=== PATIENT | female | born 1970 | race Caucasian/White ===

== ENCOUNTER 2016-11-21 23:31 | Inpatient (IN) | payer MEDICARE, BC ==
--- NOTE | ~2016-11-21 | DS ---
Discharge Summary [facility] [address] [place]. [address] NAME: JACINTA TIMMONS : 66 STATUS : DIS IN PAT#: [id number] AGE: 46 ADM/REG DATE : 11/22/16 MR#: [id number] REPORT SERV DATE: 11/26/16 DICTATED BY: TROY ADAME JR DATE: 11/25/16 REPORT STATUS : Draft TRANSCRIBED BY: MODL DATE: 11/25/16 ADMISSION DATE: 11/22/2016 DISCHARGE DATE: 11/25/2016 TOMATO PULPER OPERATOR: Key Rodriguez M.D. DISMISSAL DIAGNOSES: 1. Fever, cryptogenic, suspect viral. 2. Iron-deficiency anemia. 3. Renal transplant. 4. Chronic immunosuppression. Follow up with Dr. Héctor Cao in two to three weeks. To get lab work in his office at end of this next week. She is to phone [facility] for office followup within the next one to two months. DISPOSITION: Dismissed to home. ACTIVITY: Regular. DIET: Regular. DISMISSAL MEDICATIONS: 1. Mycophenolate 750 mg twice daily, new dose. 2. Saccharomyces or other oral probiotic eyel-tor-muggnyc by package directions. 3. Tacrolimus 4 mg twice a day. 4. Tylenol as needed. 5. Cholecalciferol 5000 units two times a week. 6. Lomotil 2.5 mg three times a day as needed for diarrhea. 7. Ranitidine 150 mg twice daily. 8. Multivitamin one daily. 9. Biotin as pre-hospital. 10.Soyp-ret-zmrzuqq iron sulfate two tablets per day with meals. HOSPITAL COURSE: The patient had a recurrent fever after experiencing episodes of fevers off and on over the last two or three months. Highest recorded temperature in the hospital was 102.9 on the first night of admission, 11/21/2016. She was treated empirically with antibiotics and seen by Infectious Disease. All bacterial culture data is negative at the time of dismissal. She defervesced over the first 36 hours and has been afebrile for the last 48 hours. Viral serologies were drawn and are pending still at this dictation. She has an ongoing pattern of episodic diarrhea, so Gastroenterology Services were consulted for endoscopy of the upper and lower tracts. Upper and lower GI tracts by endoscopy looked quite healthy and normal in appearance. Pathological samples were taken, but are pending results at the time of dictation. She came with an intra-hemoglobin of about 9.5 that dropped to 7.5 with hydration, and yesterday, she was transfused 2 units of packed red blood cells. There would be some consideration about bone marrow suppression as a consequence of Discharge Summary [place] [id number] [place]. [address] NAME: JACINTA TIMMONS : 66 STATUS : DIS IN PAT#: [id number] AGE: 46 ADM/REG DATE : 11/22/16 MR#: [id number] REPORT SERV DATE: 11/26/16 DICTATED BY: TROY ADAME JR DATE: 11/25/16 REPORT STATUS : Draft TRANSCRIBED BY: BASIA DATE: 11/25/16 her immunotherapy. Her renal function, however, is good enough that she should not have impaired erythropoiesis production. She was determined to be iron deficient and will be started on a supplement. Imaging with CT scan of the abdomen, did not identify pathology. Renal ultrasound was accomplished and showed a healthy appearing right iliac fossa renal transplant. Creatinine at dismissal is 1.2, it had been 1.6 when she came in and was clinically suspected to be dry. Radiography of the chest did not reveal any infiltrates. Urinalysis did not suggest urinary tract infection. Diarrhea has subsided in the hospital, after controlling the prep and reintroduction of oral diet. This examiner had concern about immunotherapy contributing to the diarrhea. In consultation with her [facility] general ledger bookkeeper, mycophenolate dosing was reduced by 25%. Discussion in full with the patient and her about diagnostic procedures and findings has been held throughout the hospital stay. They have acknowledged understanding. At this moment, it would appear that she had a viral illness with resolution and she will be dismissed today without oral antimicrobial therapy. There are no unanswered questions. I appreciate the assistance of Dr. Rodriguez and Dr. Parisi in the management of this interesting patient. DF/BASIA Troy Adame Jr, M.D. / [id number] CC: Troy Adame Jr, M.D. Rosa Gonsales M.D. Kandi Tafoya M.D. [facility] ([facility]
--- NOTE | ~2016-11-21 | EGD ---
EGD REPORT [facility] [address] [address] NAME: TANISHA BURNS : 66 STATUS : ADM IN PAT#: [id number] AGE: 46 ADM/REG DATE : 11/22/16 MR#: [id number] REPORT SERV DATE: 11/24/16 DICTATED BY: BRENTON MOYA DATE: 11/24/16 REPORT STATUS : Draft TRANSCRIBED BY: [facility] DATE: 11/24/16 Endoscopy Center Patient Name: Tanisha Burns Date of : 1970 Attending MD: ALMA MOYA MD Procedure Date No Time: 11/24/2016 Procedure: Colonoscopy Indications: Clinically significant diarrhea of unexplained origin, in a patient with renal transplant and on immunosuppresants Referring MD: TROY ADAME JR, LAURA GARCIA MD Medicines: See the Anesthesia note for documentation of the administered medications Complications: No immediate complications. Estimated blood loss: None. Procedure: Pre-Anesthesia Assessment: - ASA Grade Assessment: III - A patient with severe systemic disease. - Prior to the procedure, a History and Physical was performed, and patient medications and allergies were reviewed. The patient's tolerance of previous anesthesia was also reviewed. The risks and benefits of the procedure and the sedation options and risks were discussed with the patient. All questions were answered, and informed consent was obtained. Prior Anticoagulants: The patient has taken no previous anticoagulant or antiplatelet agents. After reviewing the risks and benefits, the patient was deemed in satisfactory condition to undergo the procedure. After I obtained informed consent, the scope was passed under direct vision. Throughout the procedure, the patient's blood pressure, pulse, and oxygen saturations were monitored continuously. The PCF [id number] was introduced through the anus and advanced to the terminal ileum. The ileocecal valve, appendiceal orifice, terminal ileum and rectum were photographed. The entire colon was examined. The colonoscopy was performed without difficulty. The patient tolerated the procedure well. The quality of the bowel preparation was adequate. Findings: The perianal and digital rectal examinations were normal. The terminal ileum appeared normal. Biopsies were taken with a cold forceps for histology. Normal mucosa was found in the entire colon. Biopsies were taken with a cold forceps for histology. EGD REPORT [address] [place]. [address] NAME: TANISHA BURNS : 66 STATUS : ADM IN PAT#: [id number] AGE: 46 ADM/REG DATE : 11/22/16 MR#: [id number] REPORT SERV DATE: 11/24/16 DICTATED BY: BRENTON MOYA DATE: 11/24/16 REPORT STATUS : Draft TRANSCRIBED BY: [employer] DATE: 11/24/16 Impression: - The examined portion of the ileum was normal. Biopsied. - Normal mucosa in the entire examined colon. Biopsied. Recommendation: - Patient has a contact number available for emergencies. The signs and symptoms of potential delayed complications were discussed with the patient. Return to normal activities tomorrow. Written discharge instructions were provided to the patient. - Regular diet. - Return patient to [facility] for ongoing care. - Continue present medications. - Regular diet. - Await pathology results. Procedure Code(s): --- Professional --- 99204, Colonoscopy, flexible, proximal to splenic flexure; with biopsy, single or multiple Diagnosis Code(s): --- Professional --- R19.7, Diarrhea, unspecified CPT copyright 2013 [employer]. All rights reserved. The codes documented in this report are preliminary and upon comparative sociology professor review may be revised to meet current compliance requirements. ALMA MOYA MD 11/24/2016 7:53 AM This report has been signed electronically. Number of Addenda: 0 Note Initiated On: 11/24/2016 6:51 AM Scope Withdrawal Time 0 hours 10 minutes 45 seconds [id number] [id number]
--- NOTE | ~2016-11-21 | CN ---
Consultation Report [facility] [address] [place]. [address] NAME: JACINTA TIMMONS : 66 STATUS : ADM IN PAT#: [id number] AGE: 46 ADM/REG DATE : 11/22/16 MR#: [id number] REPORT SERV DATE: 11/22/16 DICTATED BY: ALEX PARISI DATE: 11/22/16 REPORT STATUS : Draft TRANSCRIBED BY: MODL DATE: 11/22/16 INFECTIOUS DISEASE CONSULTATION DATE OF CONSULTATION: 11/22/2016 REASON FOR CONSULTATION: Febrile illness in immunocompromised patient. HISTORY OF PRESENT ILLNESS: This is a 46-year-old female with a history of renal transplant in June of 2014 for end-stage renal disease secondary to hypertension. She had previously been on dialysis. She overall has done well with her post transplant course without any major complications. She remains on stable doses of immunosuppressive therapy with Prograf and CellCept. The patient states that perhaps five weeks ago she had the onset of flu-like symptoms with fevers, myalgias, and with this initial episode also nausea, vomiting, diarrhea. Fevers got as high as 102. She was given empiric Tamiflu, although did not have an influenza test. Did have basic blood work done. She got better over the course of a week and was able to return to work only to have a relapse in her symptoms about a week and a half later again with fevers and myalgias, but no GI symptoms this time. Her temperature got as high as 101 and was episodic for three days. She had a negative influenza screen during that period. She relates that she got quite dehydrated and had to receive intravenous fluids in the Nephrology office. She again felt better only to relapse with similar symptoms about a week later with two days of fevers as high as 101.5. With this episode, she said she had blood cultures done and a urine culture. She then was reasonably well until the evening of 11/20/2016 when she had a fever up to 102 with some nausea and vomiting x3 episodes. Her fever got as high as 103 yesterday and she therefore presented to the emergency department yesterday evening where she had a temperature 102.9 and was mildly tachycardic and was found to have a white blood cell count of 13.7. Other symptoms have included watery diarrhea with about 8 to 10 stools over the last 24 hours. She notes that she has chronic episodic loose stools since her transplant, but over the past five weeks with these episodes, she has had an increase in this episodic diarrhea with greater frequency, but no significant associated abdominal pain. She does have some nausea and vomiting episodically also. She received a course of azithromycin with her second episode, but otherwise, has not had antibiotics except for the Tamiflu. Other symptoms include mild episodic headache, but it is not severe. PAST MEDICAL HISTORY: In addition to the above, is notable for hyperlipidemia, hyperparathyroidism, history of a TIA, cholecystectomy, and PD catheter placements along with a ventral hernia repair by Dr. Tabares with most recent repair in June of 2016 using Prolene mesh patch. ALLERGIES: SHE IS INTOLERANT OF LIPITOR. OUTPATIENT MEDICATIONS: Include biotin, cholecalciferol, multivitamins, CellCept 1 g b.i.d., Zantac, phosphate binders, and Prograf 4 mg b.i.d. In the emergency room, she was started on Cipro and then changed to Zosyn plus vancomycin. Consultation Report [place] [address] [place]. [address] NAME: JACINTA TIMMONS : [birth year] STATUS : ADM IN [facility]#: [id number] AGE: 46 ADM/REG DATE : 11/22/16 MR#: [id number] REPORT SERV DATE: 11/22/16 DICTATED BY: ALEX PARISI DATE: 11/22/16 REPORT STATUS : Draft TRANSCRIBED BY: BASIA DATE: 11/22/16 SOCIAL HISTORY: The patient has lived in the [facility] all her life. 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 Nonsmoker and nondrinker. Lives with her . She has two adult children. No pets or animal contact. She does do yard work, but does not note any tick bites this spring. No pertinent recent travel history. No known exposure to tuberculosis. No unusual dietary habits. FAMILY HISTORY: Negative for autoimmune illnesses, inflammatory bowel disease, or cancer. REVIEW OF SYSTEMS: As outlined above. Her weight has kind of fluctuated up and down over the past six weeks. No major changes. No visual symptoms. No sore throat, cough, sinus congestion, chest pain, shortness of breath, genitourinary symptoms, skin problems or rashes or joint complaints. PHYSICAL EXAMINATION: VITAL SIGNS: The patient weighs 83 kg; maximum temperature was yesterday at 102.9, presently afebrile; blood pressure 102/60; respiratory rate 12; and pulse 99, it was as high as 115. GENERAL: She is alert, pleasant, in no acute distress. HEAD AND NECK: Extraocular movements are intact, possibly one small petechia on each conjunctiva. Oral cavity is clear. Pharynx unremarkable. No ulcers. Neck is supple. No adenopathy. LUNGS: Clear to auscultation. BACK: Unremarkable. CARDIAC: Regular rate and rhythm. Normal S1 and S2 without murmur, gallop, or rub. ABDOMEN: Bowel sounds are present. The abdomen is soft and nontender. No tenderness over the transplant kidney. She does have some very mild discomfort to palpation over the recent ventral hernia repair, but no signs of inflammation there. EXTREMITIES: Without significant edema. SKIN: Without rash. LABORATORY STUDIES: White blood cell count today 14.5, hemoglobin 8.4, MCV 89, RDW 13.7, and platelets 189. Albumin 2.6. Liver function tests normal. Procalcitonin 1.08. Urinalysis entirely negative. Blood cultures negative to date. Chest x-ray negative. Renal ultrasound of the transplant kidney negative. IMPRESSION: This is a somewhat puzzling case of a renal transplant patient with fourth episode of fevers and myalgias over the past five weeks, who also has chronic episodic diarrhea and has had some associated nausea and vomiting also. She makes a pretty good recovery between these episodes. Her laboratory workup was notable for mild leukocytosis and anemia with lower hemoglobin compared to her baseline of around 11.5. She has not had significant abdominal pain associated with this and she has had her gallbladder removed in the past. The episodic nature of these symptoms makes many infectious etiologies less likely, but obviously we still must consider the possibility of opportunistic infections including Cytomegalovirus. Overall, I doubt Clostridium difficile colitis. Overall, I Consultation Report [address] [place]. [address] NAME: JACINTA TIMMONS : 66 STATUS : ADM IN PAT#: [id number] AGE: 46 ADM/REG DATE : 11/22/16 MR#: [id number] REPORT SERV DATE: 11/22/16 DICTATED BY: ALEX PARISI DATE: 11/22/16 REPORT STATUS : Draft TRANSCRIBED BY: BASIA DATE: 11/22/16 doubt this is some sort of occult bacterial infection. PLAN: 1. We will get a CT scan of the abdomen and pelvis. 2. We will check stool studies including C difficile, Giardia, Cryptosporidium, and fecal leukocytes along with stool Hemoccult and iron studies. 3. We will continue antibiotic therapy pending blood culture results, but we will simplify to ceftriaxone alone. 4. We will ask Gastroenterology to evaluate as she may need colonoscopy. LANDRY/BASIA Alex Parisi M.D. / [id number] CC: Héctor Cao M.D.
--- NOTE | ~2016-11-21 | HP ---
History And Physical [facility] [address] [place] [place]. [address] NAME: JACINTA TIMMONS : 66 STATUS : ADM IN PAT#: [id number] AGE: 46 ADM/REG DATE : 11/22/16 MR#: [id number] REPORT SERV DATE: 11/22/16 DICTATED BY: TROY ADAME JR DATE: 11/22/16 REPORT STATUS : Draft TRANSCRIBED BY: MODL DATE: 11/22/16 DATE OF ADMISSION: 11/22/2016 REASON FOR ADMISSION: Transplantation patient with ongoing difficulties with fever. HISTORY OF PRESENT ILLNESS: This is a fairly pleasant 46-year-old female patient, who is followed in our office by Dr. Héctor Cao. Historically, she has received a renal transplant at [facility] and has had difficulty reported since late September or early October with ongoing elevation in temperatures. She reports maximum temperatures range around 100.3, and she will have intermittent elevation in temperature readings and has intermittently used p.o. antibiotics. She has had successive treatment of urinary tract infections. They were felt to be associated with her temperature elevations prior; however, she continues to have difficulty with returning elevations in temperature. She reports to [facility] overnight with a complaint of elevation of temperature ranging up to 103 prior to evaluation here. She is currently placed on p.o. Levaquin by the ER physician. She has a swab for flu, which is negative, and her chest x-ray is clear. She does, however, have a white count elevated at 14.5. Her creatinine remains reasonably stable for her at 1.57 by report. She is awake, alert, and lying in bed this afternoon. No complaints. States she has had intermittent difficulty with nausea and vomiting, but is currently has no acute complaints. No nausea, vomiting, or diarrhea. PAST MEDICAL HISTORY: Positive for renal transplantation as listed above with previous stent of dialysis with renal transplantation being undertaken at [facility]. Remainder of her medical history is positive for chronic kidney disease stage 3, followed by Dr. Héctor Cao and renal transplantation as above, status post living unrelated donor transplant at [facility], followed at [facility], cerebrovascular accident in the past, hyperparathyroidism, hyperlipidemia, recent difficulties with fevers, previous repair of ventral hernia in 06/2016, previous TIA, as well as hyperlipidemia. REVIEW OF SYSTEMS: Review of systems is completed. Please see HPI for pertinent details. SOCIAL HISTORY: No ETOH. No illicit drugs. No tobacco. FAMILY HISTORY: Noncontributory and not reviewed during this consultation at admission. ALLERGIES: SHE LISTS ALLERGIES TO ATORVASTATIN. ACTIVE MEDICATIONS: Include biotin 500 mcg daily, vitamin D 5000 units Saturday and Saturday a.m., ciprofloxacin 500 mg p.o. b.i.d. x7 days, multivitamin tablet 1 p.o. q.h.s., CellCept 1000 mg p.o. daily, Phospha 250 mg p.o. b.i.d., Zantac 150 mg p.o. b.i.d., and Prograf 1 mg p.o. daily. PHYSICAL EXAMINATION: VITAL SIGNS: Blood pressure 126/85, temperature at 100.3, respiratory rate is 16, heart rate 93 beats per minute, and she is 100% on room air. History And Physical [address] [address] NAME: JACINTA TIMMONS : 66 STATUS : ADM IN [facility]#: [id number] AGE: 46 ADM/REG DATE : 11/22/16 MR#: [id number] REPORT SERV DATE: 11/22/16 DICTATED BY: TROY ADAME JR DATE: 11/22/16 REPORT STATUS : Draft TRANSCRIBED BY: BASIA DATE: 11/22/16 GENERAL: She is awake, alert, and oriented x3, in no acute distress, lying in bed during evaluation. Family member at bedside. HEENT: Normocephalic and atraumatic. Normal ocular movements. No scleral icterus. No conjunctival pallor is appreciated. NECK: Without thyromegaly. No JVD or mass. CHEST: Shows positive S1 and S2. No rubs. No gallops. LUNGS: Clear to auscultation throughout. Normal expansion and effort bilaterally. GASTROINTESTINAL: Shows positive bowel sounds to all four quadrants. No appreciable mass. No tenderness. No tenderness to transplanted kidney on palpation. GENITOURINARY: Deferred. EXTREMITIES: Show positive pulses to all four extremities. No clubbing, cyanosis, or edema. NEUROLOGICAL: Grossly intact. Nonfocal. SKIN: Warm, dry, and intact to visualized surfaces. No rash, lesions, or ecchymosis. NEUROLOGIC: She is of appropriate mood and affect. LABORATORY DATA: Pertinent laboratories and imaging to this evaluation are as follows: PA chest and lateral is negative for acute findings. Sodium 136, potassium 4.0, chloride 106, CO2 of 29, BUN 11, creatinine 1.57, reflected GFR at 39 mL/minute, glucose of 131. Calcium 8.2, total protein 6.3, albumin 2.6. ALT and AST are 12 and 5 respectively. CBC: White blood cell count of 14.5, RBC 2.95, hemoglobin 8.4, hematocrit 26.3, platelets 189. Influenza A and B are negative. Urinalysis is positive for 30 mg/dL of protein, glucose negative, ketone negative, leukocyte esterase negative, nitrite negative, and minimal red or white blood cells with rare mucus. IMPRESSION AND PLAN: This is a previously end-stage renal disease patient, now with chronic kidney disease 3, status post renal transplantation at [facility], non-related donor transplant, presenting to [facility] with complaint of ongoing febrile episodes over the last four to six weeks. She has intermittently been successful on antibiotics, but does present with a white count and a low-grade temperature with T-max at 103 by report over the last 48 to 72 hours. Considering her ongoing difficulty with this problem as well as nausea and vomiting intermittently as well as complaint of diarrhea, we will undertake the following mechanisms of treatment. We are going to request evaluation by Infectious Disease, continue her current p.o. medications, stop her p.o. antibiotic coverage, and place her on vancomycin and Zosyn for broad-spectrum coverage. Add procalcitonin to current laboratories. Collect HIV hepatitis. Check cytomegalovirus, BK virus, and Maria Isabel-Mello virus. Change fluids to normal saline at 75 mL an hour. Strict I's and O's. Daily weights. As she tolerates p.o. and if her nausea and vomiting subsides, we would remove IV fluids, check C difficile and ova and parasites with complaint of ongoing diarrhea. Appreciate Infectious Disease input and clinical knowledge regarding care of this patient. Further modification of treatment plan may be made based on clinical presentation, patient's laboratory results, and further consultation with renal attending. DICTATED BY: Elpidio Barrera NP History And Physical [address] [place]. [address] NAME: JACINTA TIMMONS : 66 STATUS : ADM IN PAT#: [id number] AGE: 46 ADM/REG DATE : 11/22/16 MR#: [id number] REPORT SERV DATE: 11/22/16 DICTATED BY: TROY ADAME JR DATE: 11/22/16 REPORT STATUS : Draft TRANSCRIBED BY: BASIA DATE: 11/22/16 /BASIA Troy Adame Jr, M.D. / [id number] CC: Kandi Mensah M.D.
--- NOTE | ~2016-11-21 | EGD ---
EGD REPORT [facility] [address] [place] [id number] NAME: TANISHA BURNS : [birth year] STATUS : ADM IN PAT#: [id number] AGE: 46 ADM/REG DATE : 11/22/16 MR#: [id number] REPORT SERV DATE: 11/24/16 DICTATED BY: BRENTON MOYA DATE: 11/24/16 REPORT STATUS : Draft TRANSCRIBED BY: [facility] DATE: 11/24/16 Endoscopy Center Patient Name: Tanisha Burns Date of : 1970 Attending MD: ALMA MOYA MD Procedure Date No Time: 11/24/2016 Procedure: Upper GI endoscopy Indications: Iron deficiency anemia, Diarrhea, Fever in a renal transplant patient on immunosupression. Referring MD: LAURA GARCIA MD, TROY ADAME JR Medicines: See the Anesthesia note for documentation of the administered medications Complications: No immediate complications. Estimated blood loss: Minimal. Procedure: Pre-Anesthesia Assessment: - ASA Grade Assessment: III - A patient with severe systemic disease. - Prior to the procedure, a History and Physical was performed, and patient medications and allergies were reviewed. The patient's tolerance of previous anesthesia was also reviewed. The risks and benefits of the procedure and the sedation options and risks were discussed with the patient. All questions were answered, and informed consent was obtained. Prior Anticoagulants: The patient has taken no previous anticoagulant or antiplatelet agents. After reviewing the risks and benefits, the patient was deemed in satisfactory condition to undergo the procedure. After obtaining informed consent, the endoscope was passed under direct vision. Throughout the procedure, the patient's blood pressure, pulse, and oxygen saturations were monitored continuously. The GIF [id number] was introduced through the mouth, and advanced to the second part of duodenum. The upper GI endoscopy was accomplished without difficulty. The patient tolerated the procedure well. Findings: The examined duodenum was normal. Biopsies were taken with a cold forceps for histology. The entire examined stomach was normal. Biopsies were taken with a cold forceps for histology. A few small sessile polyps with no stigmata of recent bleeding were found in the stomach. These polyps were removed with a cold snare. Resection and retrieval were complete. EGD REPORT [address] [place]. [address] NAME: TANISHA BURNS : [birth year] STATUS : ADM IN [facility]#: [id number] AGE: 46 ADM/REG DATE : 11/22/16 MR#: [id number] REPORT SERV DATE: 11/24/16 DICTATED BY: BRENTON MOYA DATE: 11/24/16 REPORT STATUS : Draft TRANSCRIBED BY: [facility] DATE: 11/24/16 A small hiatus hernia was present. Diffuse mild inflammation characterized by erythema was found in the lower third of the esophagus. Biopsies were taken with a cold forceps for histology. No other significant abnormalities were identified in a careful examination of the esophagus. Impression: - Normal examined duodenum. Biopsied. - Normal stomach. Biopsied. - A few gastric polyps. Resected and retrieved. - Hiatus hernia. - Esophageal mucosal changes were present, including erythema. Findings are suggestive of reflux inflammation. Biopsied. Recommendation: - Patient has a contact number available for emergencies. The signs and symptoms of potential delayed complications were discussed with the patient. Return to normal activities tomorrow. Written discharge instructions were provided to the patient. - Regular diet. - Return patient to [facility] for [facility] care. - Continue present medications. - Await pathology results. Procedure Code(s): --- Professional --- 06991, Esophagogastroduodenoscopy, flexible, transoral; with removal of tumor(s), polyp(s), or other lesion(s) by snare technique Diagnosis Code(s): --- Professional --- K31.7, Polyp of stomach and duodenum K44.9, Diaphragmatic hernia without obstruction or gangrene K22.8, Other specified diseases of esophagus D50.9, Iron deficiency anemia, unspecified R19.7, Diarrhea, unspecified CPT copyright 2013 [employer]. All rights reserved. The codes documented in this report are preliminary and upon rig superintendent review may be revised to meet current compliance requirements. ALMA MOYA MD 11/24/2016 7:35 AM EGD REPORT [place] [address] [id number] NAME: TANISHA BURNS : [birth year] STATUS : ADM IN [facility]#: [id number] AGE: 46 ADM/REG DATE : 11/22/16 MR#: [id number] REPORT SERV DATE: 11/24/16 DICTATED BY: BRENTON MOYA DATE: 11/24/16 REPORT STATUS : Draft TRANSCRIBED BY: [employer] DATE: 11/24/16 This report has been signed electronically. Number of Addenda: 0 Note Initiated On: 11/24/2016 6:52 AM Scope Withdrawal Time 0 hours 0 minutes 0 seconds [address] [id number]
--- NOTE | ~2016-11-21 | CN ---
Consultation Report [facility] [address] [place]. [address] NAME: JACINTA BURNS : [birth year] STATUS : ADM IN PAT#: [id number] AGE: 46 ADM/REG DATE : 11/22/16 MR#: [id number] REPORT SERV DATE: 11/23/16 DICTATED BY: SAYRA ARMSTRONG DATE: 11/23/16 REPORT STATUS : Draft TRANSCRIBED BY: [employer]L DATE: 11/23/16 GI CONSULTATION DATE OF CONSULTATION: 11/23/2016 REASON FOR CONSULTATION: Evaluation and management of diarrhea and fevers. HISTORY OF PRESENT ILLNESS: Ms. Burns is a very pleasant 46-year-old female patient with a notable history of renal transplantation in June 2014, done at [facility], on chronic immunosuppression; previous peritoneal dialysis. The patient states that overall she has done well since her transplantation. She did initially have some problems with diarrhea. She was worked up at [facility], where she had her transplant and was negative for C diff or any other enteric pathogens. She does take Prograf as well as CellCept. She and her states that up until five weeks ago, she was doing well. She had what she thought was an acute flu-like gastroenteritis. She had body aches. She had nausea, vomiting, and diarrhea. She states this lasted around seven days and then got better. Nobody in her family was sick. She went back to work, felt well for seven days and then had return of her symptoms with fevers up to 101, this lasted for four to five days, it got better. She states that this has gone on for at least four to five episodes, however, this last episode she had fever up to 103 degrees. She was noted to be severely dehydrated and secondary to continuance of fevers and diarrhea, she was admitted to the hospital for further evaluation. She has had a temperature max of 101.4. She has been seen by Infectious Disease. C difficile has been ordered, but not resulted yet. I have discussed with the patient as well as the patient's , who is present at the bedside. We will plan on pursuing endoscopy tomorrow on 11/24/2016 barring that her C difficile returns negative. I did discuss risks, benefits, alternatives, and complications with them to include, but not limited to risk of bleeding, perforation, infection, reaction to medication as well as cardiac and pulmonary side effects. PAST MEDICAL HISTORY: Positive for end-stage renal disease, status post renal transplant in 2014 at [facility], hyperlipidemia, hyperparathyroidism, obesity, TIA, cholecystectomy, PD catheter with removal, ventral hernia repair. ALLERGIES: LIPITOR. SOCIAL HISTORY: She is . She lives with her . She works in a school as a statistics teacher. No alcohol, tobacco, or illicits. FAMILY HISTORY: Noncontributory from a GI standpoint. HOME MEDICATIONS: Biotin, vitamin D, Cipro, multivitamin, CellCept, Phospha, Zantac, Prograf. REVIEW OF SYSTEMS: A 10-point review of systems has been obtained with pertinent positives being addressed in Consultation Report [address] [place]. [address] NAME: JACINTA BURNS : [birth year] STATUS : ADM IN [facility]#: [id number] AGE: 46 ADM/REG DATE : 11/22/16 MR#: [id number] REPORT SERV DATE: 11/23/16 DICTATED BY: SAYRA ARMSTRONG DATE: 11/23/16 REPORT STATUS : Draft TRANSCRIBED BY: BASIA DATE: 11/23/16 the history of present illness. PHYSICAL EXAMINATION: VITAL SIGNS: Temperature 99, pulse 89, respirations 12, blood pressure 118/64. NEURO: Reveals an alert, obese, female, resting in bed, but no notable focal deficits. GENERAL: She is cooperative, in no apparent distress. Awake, alert and oriented x3. HEAD, EARS, EYES, NOSE, AND THROAT: Anicteric. Pupils are equal, round, reactive to light and accommodation. Normocephalic and atraumatic. NECK: No JVD. No palpable nodes. LUNGS: Decreased in the bases. Clear in the upper lobes. Normal respiratory effort exhibited. CARDIOVASCULAR SYSTEM: Regular rate and rhythm. ABDOMEN: Soft and nontender with mild epigastric tenderness to palpation, but no rebound or guarding elicited on exam. EXTREMITIES: No edema. Normal distal pulses. SKIN: Warm, dry, and intact. PERTINENT LABORATORY DATA: Sodium 138, potassium 3.5, BUN is 12, creatinine 1.56, white count 10.9, hemoglobin is 7.6, hematocrit 23.7, platelet count 162. ASSESSMENT: 1. Recurrent fevers of unknown etiology. 2. Diarrhea, ongoing for five weeks. 3. Anemia. 4. History of renal transplant in 2013, on immunosuppressants. PLAN: 1. Follow up her C difficile. 2. Prep her for EGD and colonoscopy done tomorrow on 11/24/2016 with biopsies, specifically for CMV. We will follow. NICHOLAS/BASIA Sayra NEGRITO Cornejo / [id number] CC: Kandi Mensah M.D.
[2016-11-21 23:23] LABS: BASOPHILS 0.1 %; BASOPHILS ABSOLUTE 0.01 10/3/uL (0.0-0.16); EOSINOPHILS 0 %; HEMOGLOBIN 9.2 g/dL (12.0-16.0); IMMATURE GRANULOCYTES 0.2 %; IMMATURE GRANULOCYTES ABSOLUTE 0.03 10/3/uL (0.0-0.11); LYMPHOCYTES 3.9 %; LYMPHOCYTES ABSOLUTE 0.54 10/3/uL (0.67-4.30); MEAN CORPUS HGB CONC 32.1 g/dL (32.0-36.0); MEAN CORPUSCULAR HEMOGLOB 28.6 pg (26.0-34.0); MEAN CORPUSCULAR VOLUME 89.1 fL (80-100); MEAN PLATELET VOLUME 9.3 fL (9.2-13.0); MONOCYTES ABSOLUTE 0.68 10/3/uL (0.21-1.20); NEUTROPHILS 90.8 %; NEUTROPHILS ABSOLUTE 12.46 10/3/uL (2.02-8.40); PLATELET COUNT 193 10/3/uL (150-400); RBC DISTRIBUTION WIDTH 13.6 % (12.0-16.0); RED CELL COUNT 3.22 10/6/uL (4.0-5.6)
[2016-11-21 23:24] LABS: ER CBC TAT 0 Hrs 12 Mins; HEMATOCRIT 28.7 % (36.0-48.0); MANUAL DIFF NO %; WHITE BLOOD CELLS 13.7 10/3/uL (4.5-10.5)
[2016-11-21 23:29] LABS: ASCORBIC ACID (UR NOT ORDER) NEG (NEG); BILIRUBIN, URINE NEGATIVE (NEG); ER URINALYSIS TAT 0 Hrs 00 Mins; KETONE, URINE NEGATIVE (NEG); LEUKOCYTE ESTERASE(NOT OR NEG (NEG); NITRITE (URINE) NEG (NEG); WBC (NOT ORDERED) (RFLEX) 3 (0-5)
[~2016-11-21 23:31] MED LIST: ARANESP100 SC; BIOTIN5 MG PO; CALTRA600D PO; CELLCEPT5 PO; CO Q-10200 MG PO; COREG3 PO; IRON 65MG PO; L20 PO; LES40 PO; MAGOX4 PO; MULTIVIT/MIN PO; OS500+D PO; PHOSPHA 250 PO; PRILO PO; PROCRIT10 SC; PROGRAF1 PO; ROCALTROL0.5 MCG PO; SB325 PO; VITAMIN D31000 UNIT PO; ZANTAC150 MG PO
[2016-11-21 23:32] LABS: A/G RATIO 0.7 (0.7-1.9); ALKALINE PHOSPHATASE 93 U/L (45-117); BUN (BLOOD UREA NITROGEN) 13 MG/DL (6-23); CALCIUM, SERUM 8.4 MG/DL (8.5-10.4); CHLORIDE, SERUM 100 MMOL/L (96-112); CREATININE 1.68 MG/DL (0.55-1.02); GFR AFRICAN AMERICAN 41 ML/MIN (>=60); GFR NON AFRICAN AMERICAN 36 ML/MIN (>=60); GLUCOSE, SERUM 125 MG/DL (60-99); SGOT(AST) 9 U/L (5-40); SGPT(ALT) 13 U/L (5-65); TOTAL BILIRUBIN 0.8 MG/DL (0-1.2); TOTAL PROTEIN 7.3 G/DL (6.0-8.5)
[2016-11-21 23:40] LABS: CO2 (CARBON DIOXIDE) 22 MMOL/L (24-34); GLOBULIN 4.3 G/DL (2.5-4.1); POTASSIUM, SERUM 3.5 MMOL/L (3.5-5.3); SODIUM, SERUM 133 MMOL/L (135-148)
[2016-11-21 23:48] LABS: INFLUENZA A SCREEN NEGATIVE (NEGATIVE); INFLUENZA B SCREEN NEGATIVE (NEGATIVE)
[2016-11-21 23:50] LABS: BAND NEUTROPHILS 5 %; ER DIFF TAT 0 Hrs 38 Mins; LYMPHOCYTES 5 %; LYMPHOCYTES ABSOLUTE (CALC) 0.69 10/3/uL (0.67-4.30); MONOCYTES 2 %; MONOCYTES ABSOLUTE (CALC) 0.27 10/3/uL (0.21-1.20); NEUTROPHILS ABSOLUTE (CALC) 12.74 10/3/uL (2.02-8.40); PLATELET ESTIMATE ADQ (ADEQUATE); RBC MORPHOLOGY NORM (NORMAL); SEGMENTED NEUTROPHIL (0) 88 %; TOTAL NUCLEATED CELLS 100
[2016-11-22] MEDS ORDERED: CIP5 PO (00:40)
[2016-11-22] MEDS ORDERED: CELLCEPT5 PO (00:41)
[2016-11-22] MEDS ORDERED: PROGRAF1 PO (00:42)
[2016-11-22] MEDS ORDERED: D 5000 PO (00:43)
[2016-11-22] MEDS ORDERED: MULTIVIT/MIN PO (00:43)
[2016-11-22] MEDS ORDERED: ZANTAC 150 PO (00:43)
[2016-11-22] MEDS ORDERED: PHOSPHA 250 PO (00:43)
[2016-11-22] MEDS ORDERED: HARD NAILS PO (00:44)
[2016-11-22 04:25] LABS: BASOPHILS 0 %; EOSINOPHILS 0 %; ER CBC TAT 0 Hrs 13 Mins; HEMATOCRIT 26.3 % (36.0-48.0); HEMOGLOBIN 8.4 g/dL (12.0-16.0); IMMATURE GRANULOCYTES 0.3 %; IMMATURE GRANULOCYTES ABSOLUTE 0.05 10/3/uL (0.0-0.11); LYMPHOCYTES 3.7 %; LYMPHOCYTES ABSOLUTE 0.53 10/3/uL (0.67-4.30); MEAN CORPUS HGB CONC 31.9 g/dL (32.0-36.0); MEAN CORPUSCULAR HEMOGLOB 28.5 pg (26.0-34.0); MEAN CORPUSCULAR VOLUME 89.2 fL (80-100); MEAN PLATELET VOLUME 9.6 fL (9.2-13.0); MONOCYTES 6.6 %; MONOCYTES ABSOLUTE 0.95 10/3/uL (0.21-1.20); NEUTROPHILS 89.4 %; NEUTROPHILS ABSOLUTE 12.94 10/3/uL (2.02-8.40); PLATELET COUNT 189 10/3/uL (150-400); RBC DISTRIBUTION WIDTH 13.7 % (12.0-16.0); RED CELL COUNT 2.95 10/6/uL (4.0-5.6); WHITE BLOOD CELLS 14.5 10/3/uL (4.5-10.5)
[2016-11-22 04:26] LABS: MANUAL DIFF NO %
[2016-11-22 04:34] LABS: A/G RATIO 0.7 (0.7-1.9); ALBUMIN 2.6 G/DL (3.5-5.0); BUN (BLOOD UREA NITROGEN) 11 MG/DL (6-23); CALCIUM, SERUM 8.2 MG/DL (8.5-10.4); CHLORIDE, SERUM 106 MMOL/L (96-112); CO2 (CARBON DIOXIDE) 21 MMOL/L (24-34); CREATININE 1.57 MG/DL (0.55-1.02); GFR AFRICAN AMERICAN 45 ML/MIN (>=60); GFR NON AFRICAN AMERICAN 39 ML/MIN (>=60); GLOBULIN 3.7 G/DL (2.5-4.1); GLUCOSE, SERUM 131 MG/DL (60-99); SGOT(AST) 5 U/L (5-40); SGPT(ALT) 12 U/L (5-65); SODIUM, SERUM 136 MMOL/L (135-148); TOTAL BILIRUBIN 0.6 MG/DL (0-1.2); TOTAL PROTEIN 6.3 G/DL (6.0-8.5)
[2016-11-22 04:35] LABS: ALKALINE PHOSPHATASE 75 U/L (45-117)
[2016-11-22 14:45] LABS: PROCALCITONIN 1.08 ng/mL (<0.5)
[2016-11-23 05:34] LABS: HEMATOCRIT 23.7 % (36.0-48.0); HEMOGLOBIN 7.6 g/dL (12.0-16.0); MEAN CORPUS HGB CONC 32.1 g/dL (32.0-36.0); MEAN CORPUSCULAR HEMOGLOB 28.6 pg (26.0-34.0); MEAN CORPUSCULAR VOLUME 89.1 fL (80-100); MEAN PLATELET VOLUME 9.7 fL (9.2-13.0); PLATELET COUNT 162 10/3/uL (150-400); RED CELL COUNT 2.66 10/6/uL (4.0-5.6); WHITE BLOOD CELLS 10.9 10/3/uL (4.5-10.5)
[2016-11-23 05:40] LABS: MANUAL DIFF YES %
[2016-11-23 06:12] LABS: ALBUMIN 2.3 G/DL (3.5-5.0); BUN (BLOOD UREA NITROGEN) 12 MG/DL (6-23); CHLORIDE, SERUM 107 MMOL/L (96-112); CO2 (CARBON DIOXIDE) 20 MMOL/L (24-34); CREATININE 1.56 MG/DL (0.55-1.02); FERRITIN 791 NG/ML (8-252); GFR AFRICAN AMERICAN 45 ML/MIN (>=60); GFR NON AFRICAN AMERICAN 39 ML/MIN (>=60); GLUCOSE, SERUM 119 MG/DL (60-99); IRON BINDING CAPACITY 150 MCG/DL (225-410); IRON, SERUM 10 MCG/DL (35-150); PHOSPHORUS, SERUM 1.8 MG/DL (2.5-4.5); POTASSIUM, SERUM 3.5 MMOL/L (3.5-5.3); SODIUM, SERUM 138 MMOL/L (135-148)
[2016-11-23 06:17] LABS: BAND NEUTROPHILS 3 %; LYMPHOCYTES 2 %; LYMPHOCYTES ABSOLUTE (CALC) 0.22 10/3/uL (0.67-4.30); MONOCYTES 5 %; MONOCYTES ABSOLUTE (CALC) 0.55 10/3/uL (0.21-1.20); NEUTROPHILS ABSOLUTE (CALC) 10.14 10/3/uL (2.02-8.40); PLATELET ESTIMATE ADQ (ADEQUATE); RBC MORPHOLOGY NORM (NORMAL); SEGMENTED NEUTROPHIL (0) 90 %; TOTAL NUCLEATED CELLS 100
[2016-11-23 06:33] LABS: PROCALCITONIN 10.74 ng/mL (<0.5)
[2016-11-23 10:19] LABS: HEPATITIS B SURFACE ANTIGEN NON-REACTIVE (NON-REACT)
[2016-11-23 10:20] LABS: HEPATITIS C ANTIBODY NON-REACTIVE (NON-REACT)
[2016-11-23 10:21] LABS: HEPATITIS B CORE AB IGM NON-REACTIVE (NON-REAC)
[2016-11-23 10:22] LABS: HIV COMBO NON-REACTIVE (NON REAC)
[2016-11-23 10:23] LABS: HEP A ANTIBODY IGM NON-REACTIVE (NON-REACT)
[2016-11-24 06:46] LABS: BASOPHILS 0.2 %; BASOPHILS ABSOLUTE 0.01 10/3/uL (0.0-0.16); EOSINOPHILS 2.3 %; EOSINOPHILS ABSOLUTE 0.12 10/3/uL (0.0-0.53); HEMATOCRIT 24.6 % (36.0-48.0); HEMOGLOBIN 7.8 g/dL (12.0-16.0); LYMPHOCYTES 12.6 %; LYMPHOCYTES ABSOLUTE 0.66 10/3/uL (0.67-4.30); MEAN CORPUS HGB CONC 31.7 g/dL (32.0-36.0); MEAN CORPUSCULAR HEMOGLOB 28.1 pg (26.0-34.0); MEAN CORPUSCULAR VOLUME 88.5 fL (80-100); MEAN PLATELET VOLUME 9.1 fL (9.2-13.0); MONOCYTES 10.5 %; MONOCYTES ABSOLUTE 0.55 10/3/uL (0.21-1.20); NEUTROPHILS 74.4 %; NEUTROPHILS ABSOLUTE 3.91 10/3/uL (2.02-8.40); PLATELET COUNT 161 10/3/uL (150-400); RED CELL COUNT 2.78 10/6/uL (4.0-5.6)
[2016-11-24 06:51] LABS: INTERNATIONAL NORMAL RATI 1.2 UNITS (-); PROTIME (NOT ORD) 15.1 SEC (12.0-14.5)
[2016-11-24 06:53] LABS: MANUAL DIFF NO %; WHITE BLOOD CELLS 5.3 10/3/uL (4.5-10.5)
[2016-11-24 07:04] LABS: A/G RATIO 0.6 (0.7-1.9); ALBUMIN 2.5 G/DL (3.5-5.0); ALKALINE PHOSPHATASE 71 U/L (45-117); BUN (BLOOD UREA NITROGEN) 9 MG/DL (6-23); CALCIUM, SERUM 8.8 MG/DL (8.5-10.4); CHLORIDE, SERUM 111 MMOL/L (96-112); CO2 (CARBON DIOXIDE) 22 MMOL/L (24-34); CREATININE 1.39 MG/DL (0.55-1.02); GFR AFRICAN AMERICAN 52 ML/MIN (>=60); GFR NON AFRICAN AMERICAN 45 ML/MIN (>=60); GLUCOSE, SERUM 98 MG/DL (60-99); POTASSIUM, SERUM 3.6 MMOL/L (3.5-5.3); SGOT(AST) 5 U/L (5-40); SGPT(ALT) 10 U/L (5-65); TOTAL BILIRUBIN 0.3 MG/DL (0-1.2); TOTAL PROTEIN 6.5 G/DL (6.0-8.5)
[2016-11-24 07:12] LABS: PHOSPHORUS, SERUM 2.4 MG/DL (2.5-4.5); SODIUM, SERUM 145 MMOL/L (135-148)
[2016-11-24 11:51] LABS: % IRON SAT 9 % (20-50); FERRITIN 794 NG/ML (8-252); IRON BINDING CAPACITY 159 MCG/DL (225-410); IRON, SERUM 15 MCG/DL (35-150); RETICULOCYTE COUNT 1.2 % (0.5-2.5); RETICULOCYTE COUNT ABSOLUTE 33.9 10/3/uL (20.2-119.8)
[2016-11-25 07:04] LABS: BASOPHILS 0.2 %; BASOPHILS ABSOLUTE 0.01 10/3/uL (0.0-0.16); EOSINOPHILS 4.2 %; EOSINOPHILS ABSOLUTE 0.23 10/3/uL (0.0-0.53); IMMATURE GRANULOCYTES 0.4 %; IMMATURE GRANULOCYTES ABSOLUTE 0.02 10/3/uL (0.0-0.11); LYMPHOCYTES 12.1 %; LYMPHOCYTES ABSOLUTE 0.66 10/3/uL (0.67-4.30); MEAN CORPUS HGB CONC 33.1 g/dL (32.0-36.0); MEAN CORPUSCULAR HEMOGLOB 29.3 pg (26.0-34.0); MEAN CORPUSCULAR VOLUME 88.5 fL (80-100); MEAN PLATELET VOLUME 9.9 fL (9.2-13.0); MONOCYTES 11.2 %; MONOCYTES ABSOLUTE 0.61 10/3/uL (0.21-1.20); NEUTROPHILS 71.9 %; NEUTROPHILS ABSOLUTE 3.92 10/3/uL (2.02-8.40); PLATELET COUNT 187 10/3/uL (150-400); RBC DISTRIBUTION WIDTH 14.6 % (12.0-16.0); RED CELL COUNT 3.21 10/6/uL (4.0-5.6); WHITE BLOOD CELLS 5.5 10/3/uL (4.5-10.5)
[2016-11-25 07:07] LABS: HEMATOCRIT 28.4 % (36.0-48.0); HEMOGLOBIN 9.4 g/dL (12.0-16.0); MANUAL DIFF NO %
[2016-11-25 07:18] LABS: ALBUMIN 2.3 G/DL (3.5-5.0); BUN (BLOOD UREA NITROGEN) 9 MG/DL (6-23); CALCIUM, SERUM 8.9 MG/DL (8.5-10.4); CHLORIDE, SERUM 111 MMOL/L (96-112); CO2 (CARBON DIOXIDE) 22 MMOL/L (24-34); CREATININE 1.25 MG/DL (0.55-1.02); GFR AFRICAN AMERICAN 59 ML/MIN (>=60); GFR NON AFRICAN AMERICAN 51 ML/MIN (>=60); GLUCOSE, SERUM 94 MG/DL (60-99); SODIUM, SERUM 144 MMOL/L (135-148)
[2016-11-25 07:19] LABS: PHOSPHORUS, SERUM 3.5 MG/DL (2.5-4.5); POTASSIUM, SERUM 4.6 MMOL/L (3.5-5.3)
[2016-11-25 08:07] LABS: PROCALCITONIN 2.85 ng/mL (<0.5)
[2016-11-25] MEDS ORDERED: FLORASTOR250 MG PO (10:20)
[2016-11-25] MEDS ORDERED: LOM PO (10:21)
[2016-11-25] MEDS ORDERED: FESO4 PO (10:25)
[2016-11-25 17:47] LABS: CMV DNA PCR QUAL Not Detected (NOTDET); CMV SOURCE Plasma (())
[2016-11-26 14:50] LABS: BK DNA BLD - COPIES/ML 870 (NOTDET); BK DNA QUANT BLD - LOG10 2.9 Log10 (NOTDET)
[2016-11-27 09:33] LABS: BKV SOURCE BLD PLASMA
[2016-11-27 12:54] LABS: EB VCA AB IGG Positive (Negative); EB VCA AB IGM Negative (Negative); EBV NUCLEAR AB IGG Equivocal (Negative)
== END 2016-11-25 13:01 | disposition home or self-care (01) | DRG 683 ==
LOC: ER 23:31 → ER/OF 11-22 00:34 → 2SO 11-22 06:33
PROVIDERS: Emergency Medicine; Internal Medicine Gastroenterology; Internal Medicine Infectious Disease; Registered Nurse
PROC: 0DB98ZX Excision of Duodenum, Via Natural or Artificial Opening Endoscopic, Diagnostic (ICD-10-PCS; 2016-11-24)
PROC: 0DB68ZX Excision of Stomach, Via Natural or Artificial Opening Endoscopic, Diagnostic (ICD-10-PCS; 2016-11-24)
PROC: 0DB38ZX Excision of Lower Esophagus, Via Natural or Artificial Opening Endoscopic, Diagnostic (ICD-10-PCS; 2016-11-24)
PROC: 30233N1 Transfusion of Nonautologous Red Blood Cells into Peripheral Vein, Percutaneous Approach (ICD-10-PCS; 2016-11-24)
PROC: 0DBE8ZX Excision of Large Intestine, Via Natural or Artificial Opening Endoscopic, Diagnostic (ICD-10-PCS; principal; 2016-11-24 07:19)
PROC: 0DB68ZZ Excision of Stomach, Via Natural or Artificial Opening Endoscopic (ICD-10-PCS; 2016-11-24 07:19)
DX: N17.9 Acute kidney failure, unspecified (principal); Z94.0 Kidney transplant status; K22.8 Other specified diseases of esophagus; R50.9 Fever, unspecified; N18.3 Chronic kidney disease, stage 3 (moderate); D50.9 Iron deficiency anemia, unspecified; E21.3 Hyperparathyroidism, unspecified; E78.5 Hyperlipidemia, unspecified; K44.9 Diaphragmatic hernia without obstruction or gangrene; K31.7 Polyp of stomach and duodenum; R19.7 Diarrhea, unspecified; Z86.73 Personal history of transient ischemic attack (TIA), and cerebral infarction without residual deficits; Z98.890 Other specified postprocedural states
CPT/HCPCS: 36415; 71020; 74176; 76775; 80053; 80069; 80074; 81001; 82272; 82728; 83540; 83550; 83735; 84145; 85025; 85045; 85610; 86664; 86665; 86665-59; 86850; 86900; 86901; 86920; 87040; 87045; 87046; 87046-59; 87328; 87329; 87389; 87493; 87493-59; 87496; 87799; 87804; 87899; 87899-59; 88305; 89055; 96374; 99284; A9270-GY; J2405; J2543; J3370; J7507; P9016